=== PATIENT | male | born 1970 | race Caucasian/White ===

== ENCOUNTER → 2017-06-10 14:11 | Outpatient (CLI) | payer MEDICAID, SELFPAY ==
[2017-06-10 13:04] VITALS: BP 120/78; BMI 26.1
--- NOTE | 2017-06-10 14:35 | RAD_ITS ---
STUDY: X-RAY CHEST REASON FOR EXAM: Male, 47 years old. Chest pain. Shortness of breath. TECHNIQUE: PA and lateral views of the chest. COMPARISON: Comparison is made with prior study dated July 22, 2016. FINDINGS: The lungs are clear and expanded. There is no demonstrated pleural abnormality. Normal size heart. Normal mediastinum and sheyla. Normal visualized pulmonary arteries. Normal visualized aortic arch and descending thoracic aorta. Normal visualized thoracic spine. Normal visualized ribs, clavicles, and shoulders. There is no demonstrated abnormality of the visualized soft tissue structures of the upper abdomen. RAD/Chest PA and Lateral IMPRESSION: Normal x-ray examination of the chest. Electronically Signed: Rafita Mitchell MD at 15:41 EST Tel [phone], Service support ,
[2017-06-10 15:02] LABS: Absolute Lymphocyte Count 1.91 X10^3/ul (0.83-4.51); Absolute Neutrophil Count 5.1 X10^3/uL (2.0-7.7); Basophil# 0.05 X10^3/uL; Basophil% 0.7 % (0-1); Eosinophil# 0.11 X10^3/uL; Eosinophils% 1.4 % (0-5); Hematocrit 48.9 % (40-54); Hemoglobin 16.7 g/dl (13.0-16.5); Lymphocyte # 1.91 X10^3/ul (4.0); Lymphocyte % 24.9 % (19-41); Mean Corp Hgb Conc 34.2 g/gl (32-36); Mean Corpuscular Hgb 33.7 pg (27.0-32.0); Mean Corpuscular Volume 98.6 fL (80-94); Monocyte% 6.5 % (0-10); Neutrophil # 5.06 X10^3/uL (2.7-7.7); Platelet Count 254 K/mm3 (150-450); RBC Distribution Width CV 13.6 % (11.6-14.6); RBC Distribution Width SD 48.8 fl (35.1-43.9); Red Blood Count 4.96 M/mm3 (4.6-6.2); White Blood Count 7.7 K/mm3 (4.4-11.0)
[2017-06-10 15:04] LABS: POSITIVE COUNT NO; POSITIVE DIFFERENTIAL NO; POSITIVE MORPHOLOGY NO
[2017-06-10 15:07] LABS: International Normalized Ratio 1.1; Partial Thromboplast Time 30.8 Seconds (24.1-36.2); Prothrombin Time (Protime)PT. 13.9 SECONDS (11.7-14.9)
[2017-06-10 15:21] LABS: Anion Gap 6 (5-15); BUN 9 mg/dL (7-18); BUN/Creat Ratio 8.7 RATIO (10-20); Calcium,Total 9.5 mg/dL (8.5-10.1); Chloride 105 mmol/L (98-107); Creatinine, Serum 1.04 mg/dL (0.70-1.30); EST Glomerular Filtration Rate 81 mL/min (>60); Est Glom Filt Rate - Afr Amer 98 mL/min (>60); Glucose 94 mg/dL (70-110); Potassium 4.6 mmol/L (3.5-5.1); Sodium Level 139 mmol/L (136-145)
== END ==
PROVIDERS: Family Provider Family Medicine; PCP Family Medicine; Visit Provider Physician Assistant Medical
DX: R06.09 Other forms of dyspnea (principal); R07.9 Chest pain, unspecified
CPT/HCPCS: 36415; 71046; 80048; 85025; 85610; 85730

== ENCOUNTER 2017-06-29 09:52 | Day surgery (SDC) | payer MEDICAID, SELFPAY ==
[2017-06-28 11:55] VITALS: BMI 26.1
[2017-06-29 11:41] LABS: Blood Gas Specimen Type VEN; VBG BASE EXCESS -1 mmol/L (-1.0-3.5); VBG Bicarbonate 23 mmol/L (22-26); VBG Oxygen Content 24 mmol/L (23-33); VBG PO2 30 mmHg (25-40); VBG SO2 61 % (50-70); VBG pCO2 34.8 mmHg (41-51); VBG pH 7.43 (7.32-7.42)
[2017-06-29 11:41] LABS: Blood Gas Specimen Type VEN; VBG BASE EXCESS -1 mmol/L (-1.0-3.5); VBG Bicarbonate 24 mmol/L (22-26); VBG Oxygen Content 25 mmol/L (23-33); VBG PO2 28 mmHg (25-40); VBG SO2 53 % (50-70); VBG pCO2 38.8 mmHg (41-51)
[2017-06-29 11:41] LABS: Blood Gas Specimen Type VEN; VBG BASE EXCESS -2 mmol/L (-1.0-3.5); VBG Bicarbonate 22 mmol/L (22-26); VBG Oxygen Content 23 mmol/L (23-33); VBG PO2 37 mmHg (25-40); VBG SO2 73 % (50-70); VBG pCO2 34.9 mmHg (41-51); VBG pH 7.41 (7.32-7.42)
[2017-06-29 11:41] LABS: Base Excess -1 mmol/L (-2 to +2); Bicarbonate 22.6 mmol/L (22-26); Blood Gas Specimen Type ART; PO2 75 mmHG (75-100); SO2 96 % (95-99); Total Carbon Dioxide 24 mmol/L; pH 7.46 (7.35-7.45)
[2017-06-29 11:41] LABS: Blood Gas Specimen Type VEN; VBG BASE EXCESS 0 mmol/L (-1.0-3.5); VBG Bicarbonate 25 mmol/L (22-26); VBG Oxygen Content 26 mmol/L (23-33); VBG PO2 39 mmHg (25-40); VBG SO2 75 % (50-70); VBG pCO2 37.8 mmHg (41-51); VBG pH 7.42 (7.32-7.42)
[2017-06-29 11:41] LABS: Blood Gas Specimen Type VEN; VBG BASE EXCESS 0 mmol/L (-1.0-3.5); VBG Bicarbonate 24 mmol/L (22-26); VBG Oxygen Content 25 mmol/L (23-33); VBG PO2 30 mmHg (25-40); VBG SO2 60 % (50-70); VBG pCO2 35.7 mmHg (41-51); VBG pH 7.44 (7.32-7.42)
[2017-06-29 16:43] VITALS: PULSE 78
[2017-06-29 16:50] VITALS: BP 105/47; PULSE 79; RESP 16; TEMP 36.6; O2SAT 96
[2017-06-29] MEDS: 0.9% Normal Saline 1,000 ML 75 ML IV (16:53)
[2017-06-29 18:59] VITALS: PULSE 81
--- NOTE | 2017-06-29 20:45 | CL.D_ITS ---
Patient Name: ARTURO SUAREZ Study Date: 06/29/2017 Performing: Brenden Middleton MD Ht: 66.14 inches 168 cm : 1970 Wt: 160.94 lbs 73 kg Age: 47 Gender: male BSA: 1.83 PROCEDURE(S) PERFORMED EU87-SNP/LHC/COR/LV CLINICAL PROFILE AND INDICATIONS INDICATIONS: Shortness of Breath Stress/Imaging Stress/Image Study Performed: No Angina Classification Anginal Classification w/in 2 Weeks: No symptoms CAD Presentations: Other: Shortness of Breath CONCLUSIONS Elevated Left Ventricular End Diastolic Pressure (mild) Right heart pressures - Normal The patient has normal pulmonary hemodynamics. Intracardiac shunting: None (calculated QP/QS ratio of 1.1: considered nonhemodynamically significant ) Normal coronary arteries Normal Left Ventricular systolic function LVEF: by LV gram 65 % RECOMMENDATIONS Risk factor modification Medical therapy Follow up with primary care physician DESCRIPTION OF PROCEDURE The patient arrived to the procedure lab. The risks and benefits of the procedure as well as a full d escription of our services here and current unavailability of surgical backup were fully explained to the patient and/or their significant other prior to the catheterization. The Timeout was completed, verifying the correct patient and procedure. The patient's procedural site was prepped and draped in the usual fashion. Local anesthetic was given subcutaneously to right groin region with Lidocaine 2%. Using a modified Seldinger technique, arterial access was obtained via the right femoral artery, a 4 Fr sheath was inserted Venous access was obtained via the right femoral vein, a 7Fr sheath was insert ed. A 7Fr thermal dilution catheter was inserted and right heart pressures were recorded, it was then advanced to PA position for cardiac outputs. Left Ventriculography was performed in MC projection u sing a 4 Fr. Pigtail catheter. The Thermal dilution catheter was then removed. Left Coronary Artery s elective angiography was performed in multiple views using a 4 Fr. JL5 catheter. Right Coronary Arter y selective angiography was then performed in multiple views using a 4 Fr. 3DRC catheter.The arterial sheath was pulled and manual compression applied until hemostasis is achieved.. The venous sheath wa s then pulled and manual compression applied until hemostasis achieved CORONARY ANGIOGRAPHY DOMINANCE: Co- Dominant LEFT HEART ASSESSMENT Left Ventricular Ejection Fraction: by LV Gram 65 % Normal LV wall motion Elevated Left Ventricular End Diastolic Pressure LVEDP: 15 mmHg RIGHT HEART ASSESSMENT Thermal CO: 4.9 Thermal CI: 2.68 Colleen CO: 4.66 Colleen CI: 2.55 PW: 16/10 10 PA: 26/11 17 RV: 30/0 0 RA: 12/7 7 PVR: 114 Right Heart pressures - normal Intracardiac shunting: None (Calculated QP/QS ratio of 1.1: considered nonhemodynamically significant ) LEFT MAIN: Angiographically normal LEFT ANTERIOR DECENDING ARTERY: Angiographically normal CIRCUMFLEX ARTERY: Angiographically normal RIGHT CORONARY ARTERY: Angiographically normal VALVE FINDINGS: Normal Aortic Valve function Normal Mitral Valve function AORTIC ROOT: Angiographically normal COMPLICATIONS No Complications PROCEDURE MEDICATIONS Versed 1 mg IV Baby Aspirin (81mg) 1 Tabs PO @ 06/29/2017 11:01:57 SUMMARY OF HEMODYNAMIC DATA Time AIR REST ECG 10:32:37 RA 12/7 (7) SV 11:07:57 RA 11/4 (4) 11:11:27 RV 30/0, 0 11:12:43 PW 16/10 (10) PV 11:13:46 PA 26/11 (17) PA 11:14:03 LV 111/-12, 15 11:19:10 LV 110/-12, 15 11:19:28 PW 18/16 (13) 11:19:28 LV 109/4, 17 11:20:54 PW 19/17 (14) 11:20:54 LVp 110/2, 20 11:21:16 AOp 109/64 (85) 11:21:21 PA 29/11 (21) 11:21:50 RV 34/2, 11 11:24:31 RA 16/ (7) 11:24:57 Type SV CO (l/m) CI (l/m/ HR Time AIR REST Thermal 65.30 4.90 2.68 75 10:32:37 Colleen 62.10 4.66 2.55 75 10:32:37 Label % O2 Pres/Loc Time AIR REST AO 96 PV 11:34:52 IVC 73 SV 11:34:57 SVC 53 11:35:01 PA 60 PA 11:35:06 Signed By Brenden Middleton MD On 06/29/2017 20:50:36 Signed By Brenden Middleton MD On 06/29/2017 20:44:25 Brenden Middleton MD
[2017-06-29 22:50] VITALS: BP 127/61; PULSE 74; RESP 18; TEMP 36.5; O2SAT 96
[2017-06-29 23:05] VITALS: PULSE 78
[2017-06-30] MEDS: ALPRAZolam 0.5 MG Tablet 2 MG PO (01:19)
[2017-06-30 03:03] VITALS: PULSE 75
[2017-06-30 04:50] VITALS: BP 100/68; PULSE 82; RESP 16; TEMP 36.6; O2SAT 94
[2017-06-30] MEDS: 0.9% Normal Saline 1,000 ML 75 ML IV (04:57)
[2017-06-30 05:57] LABS: Hematocrit 45.1 % (40-54); Hemoglobin 14.9 g/dl (13.0-16.5); Mean Corpuscular Hgb 32.5 pg (27.0-32.0); Mean Corpuscular Volume 98.3 fL (80-94); Mean Platelet Vol. 9.3 fl (6.2-12.0); Platelet Count 230 K/mm3 (150-450); RBC Distribution Width CV 13.6 % (11.6-14.6); RBC Distribution Width SD 48.8 fl (35.1-43.9); Red Blood Count 4.59 M/mm3 (4.6-6.2); White Blood Count 5.8 K/mm3 (4.4-11.0)
[2017-06-30 06:09] LABS: Anion Gap 6 (5-15); BUN 8 mg/dL (7-18); BUN/Creat Ratio 9.5 RATIO (10-20); Calcium,Total 8.4 mg/dL (8.5-10.1); Chloride 107 mmol/L (98-107); Creatinine, Serum 0.84 mg/dL (0.70-1.30); EST Glomerular Filtration Rate 102 mL/min (>60); Est Glom Filt Rate - Afr Amer 124 mL/min (>60); Glucose 77 mg/dL (74-106); Potassium 4.2 mmol/L (3.5-5.1); Sodium Level 138 mmol/L (136-145)
[2017-06-30 06:23] LABS: Scan Indicated on CBC? Y/N NO
[2017-06-30 06:55] VITALS: PULSE 76
--- NOTE | 2017-06-30 13:07 | PCM.PN.CARD ---
Subjectve: The patient was evaluated earlier this day. He had no new complaints status post his cardiac catheterization yesterday, during the night, or this morning. Objective: Vital Signs Temp Pulse Resp BP Pulse Ox 97.9 F 76 16 100/68 94 06/30/17 04:50 06/30/17 06:55 06/30/17 04:50 06/30/17 04:50 06/30/17 04:50 Oxygen Delivery Method Room Air Weight: 162 lb Body Mass Index (BMI) 26.1 Intake and Output for Last 24 Hours 06/28/17 06/29/17 06/30/17 23:59 23:59 23:59 Intake Total 1721 172 Balance 1721 General: Awake, Alert, Oriented x 3, No Acute Distress Neck: No JVD Lungs: Clear to auscultation Cardiovascular: Regular Rhythm, Normal S1, Normal S2 Vascular: Normal Femoral Pulses Abdomen: Bowel Sounds Present, Soft, Non Tender Neurological: No Focal Motor or Sensory Deficit 06/30/17 05:10: WBC 5.8, RBC 4.59 L, Hgb 14.9, Hct 45.1, MCV 98.3 H, MCH 32.5 H, MCHC 33.0, RDW 13.6, RDW Differential 48.8 H, Plt Count 230, MPV 9.3 06/30/17 05:10: Sodium 138, Potassium 4.2, Chloride 107, Carbon Dioxide 25.0, Anion Gap 6, BUN 8, Creatinine 0.84, Est GFR (MDRD) Af Amer 124, Est GFR (MDRD) Non-Af 102, BUN/Creatinine Ratio 9.5 L, Glucose 77, Calcium 8.4 L Rhythm: Sinus rhythm Assessment/Plan 1. Chest pain/shortness of breath The patient underwent cardiovascular evaluation yesterday for his progressive chest discomfort and shortness of breath. This included a diagnostic right/left cardiac catheterization. The cardiac catheterization did not demonstrate any obvious elevated intrapulmonary/right heart pressures, obvious intracardiac shunting, or diminished LV systolic function. The coronary anatomy appeared to be angiographically normal. The patient was monitored overnight based upon his lack of family support capability to care for him if he had a post procedure adverse event at home. He had no new acute symptoms/adverse events status post his procedure. Thus, at the present time, the patient is to be released home. He will need to continue to follow with his primary care physician for further noncardiac evaluation of his chest discomfort and shortness of breath. This note was generated with [employer] dictation software. It may contain incorrect words, spelling, and punctuation that were not noted in checking the note before signing.
--- NOTE | 2017-06-30 13:12 | PN.CARD_ITS ---
Subjectve: The patient was evaluated earlier this day. He had no new complaints status post his cardiac catheterization yesterday, during the night, or this morning. Objective: Vital Signs Temp Pulse Resp BP Pulse Ox 97.9 F 76 16 100/68 94 06/30/17 04:50 06/30/17 06:55 06/30/17 04:50 06/30/17 04:50 06/30/17 04:50 Oxygen Delivery Method Room Air Weight: 162 lb Body Mass Index (BMI) 26.1 Intake and Output for Last 24 Hours 06/28/17 06/29/17 06/30/17 23:59 23:59 23:59 Intake Total 1721 172 Balance 1721 General: Awake, Alert, Oriented x 3, No Acute Distress Neck: No JVD Lungs: Clear to auscultation Cardiovascular: Regular Rhythm, Normal S1, Normal S2 Vascular: Normal Femoral Pulses Abdomen: Bowel Sounds Present, Soft, Non Tender Neurological: No Focal Motor or Sensory Deficit 06/30/17 05:10: WBC 5.8, RBC 4.59 L, Hgb 14.9, Hct 45.1, MCV 98.3 H, MCH 32.5 H , MCHC 33.0, RDW 13.6, RDW Differential 48.8 H, Plt Count 230, MPV 9.3 06/30/17 05:10: Sodium 138, Potassium 4.2, Chloride 107, Carbon Dioxide 25.0, Anion Gap 6, BUN 8, Creatinine 0.84, Est GFR (MDRD) Af Amer 124, Est GFR (MDRD) Non-Af 102, BUN/Creatinine Ratio 9.5 L, Glucose 77, Calcium 8.4 L Rhythm: Sinus rhythm Assessment/Plan 1. Chest pain/shortness of breath The patient underwent cardiovascular evaluation yesterday for his progressive chest discomfort and shortness of breath. This included a diagnostic right/ left cardiac catheterization. The cardiac catheterization did not demonstrate any obvious elevated intrapulmonary/right heart pressures, obvious intracardiac shunting, or diminished LV systolic function. The coronary anatomy appeared to be angiographically normal. The patient was monitored overnight based upon his lack of family support capability to care for him if he had a post procedure adverse event at home. He had no new acute symptoms/adverse events status post his procedure. Thus, at the present time, the patient is to be released home. He will need to continue to follow with his primary care physician for further noncardiac evaluation of his chest discomfort and shortness of breath. This note was generated with [employer] dictation software. It may contain incorrect words, spelling, and punctuation that were not noted in checking the note before signing.
== END 2017-06-30 09:29 | disposition home or self-care (01) ==
LOC: CLSP 09:53 → PCU 07-01 10:01
PROVIDERS: Family Provider Family Medicine; PCP Family Medicine; Visit Provider Internal Medicine Cardiovascular Disease
DX: R07.9 Chest pain, unspecified (principal); R06.09 Other forms of dyspnea; R55 Syncope and collapse; J45.909 Unspecified asthma, uncomplicated; F41.9 Anxiety disorder, unspecified; F32.9 Major depressive disorder, single episode, unspecified; F17.200 Nicotine dependence, unspecified, uncomplicated; Z79.899 Other long term (current) drug therapy
CPT/HCPCS: 36415; 80048; 82803; 85027; 93460; 99152; 99153; J7030; J7040; C1751; C1769; C1894; Q9967

== ENCOUNTER → 2017-07-01 10:36 | Outpatient (CLI) | payer MEDICAID, SELFPAY ==
--- NOTE | 2017-07-01 10:46 | RAD_ITS ---
STUDY: X-RAY CHEST REASON FOR EXAM: Male, 47 years old. Pain with respiration. TECHNIQUE: PA and lateral views of the chest. COMPARISON: Comparison is made with prior study dated June 10, 2017. FINDINGS: The lungs are clear and expanded. There is no demonstrated pleural abnormality. Normal size heart. Normal mediastinum and sheyla. Normal visualized pulmonary arteries. Normal visualized aortic arch and descending thoracic aorta. Normal visualized thoracic spine. Normal visualized ribs, clavicles, and shoulders. There is no demonstrated abnormality of the visualized soft tissue structures of the upper abdomen. RAD/Chest PA and Lateral IMPRESSION: Normal x-ray examination of the chest. Electronically Signed: Rafita Mitchell MD at 15:14 EST Tel [phone], Service support ,
== END ==
PROVIDERS: Family Provider Family Medicine; PCP Family Medicine; Visit Provider Physician Assistant Medical
DX: M89.8X1 Other specified disorders of bone, shoulder (principal); R07.1 Chest pain on breathing
CPT/HCPCS: 71046

== ENCOUNTER → 2018-08-04 12:35 | Outpatient (CLI) | payer MEDICAID, SELFPAY ==
[2018-04-26 08:33] VITALS: BMI 25.0
--- NOTE | 2018-08-07 09:49 | PFT ---
INTRODUCTION: The patient is a 48-year-old male that presents for pulmonary function testing secondary to a diagnosis of COPD. Respiratory therapy reports good patient effort. Bronchodilators were used during testing. INTERPRETATION: Forced expiration spirometry demonstrates the presence of a mild large airways obstructive ventilatory defect. There was no significant response to aerosolized bronchodilators. Spirograms are of good quality and do not plateau indicating slow emptying of the lungs. Body plethysmography was performed and reveals lung volumes to be within normal limits. Diffusing capacity by single breath CO is also within normal limits at 75% of predicted. There has been relative stability in the patient's pulmonary function studies since August 2016. IMPRESSION: Irreversible mild large airways obstructive ventilatory defect.
== END ==
PROVIDERS: Family Provider Family Medicine; PCP Family Medicine; Referring Provider Internal Medicine Critical Care Medicine; Visit Provider Internal Medicine Critical Care Medicine
DX: J45.909 Unspecified asthma, uncomplicated (principal); Z72.0 Tobacco use
CPT/HCPCS: 94060; 94726; 94729

== ENCOUNTER → 2018-11-03 | Outpatient (CLI) | payer MEDICAID, SELFPAY ==
[2018-10-26 11:23] VITALS: BMI 24.0
--- NOTE | 2018-11-03 08:37 | CDU_ITS ---
Reason For Study: Vertigo Rt. Velocities/BP Lt. Velocities/BP Prox CCA 119.1/33 cm/sec. Prox CCA 117/40.2 cm/sec. Mid CCA 93/27.8 cm/sec. Mid CCA 106/31.4 cm/sec. Dist CCA 96.9/31.7 cm/sec. Dist CCA 101/38.9 cm/sec. Prox ICA 77.2/22.3 cm/sec. Prox ICA 85.1/28.6 cm/sec. Mid ICA 75/28.9 cm/sec. Mid ICA 86.3/36 cm/sec. Dist ICA 90.5/42.1 cm/sec. Dist ICA 60.9/27.5 cm/sec. Rt. ICA/CCA = 0.9. Lt. ICA/CCA = 0.8. Prox ECA 71.7/16.8 cm/sec. Prox ECA 85.1/13.9 cm/sec. Rt. Vert. 52.6/18.6 cm/sec. Lt. Vert. 18.8 cm/sec. Right Extracranial There is intimal thickening but no significant atherosclerotic plaque noted in the right common carotid artery. There is intimal thickening but no significant atherosclerotic plaque noted in the right internal carotid artery. There is no significant atherosclerotic plaque noted in the right external carotid artery. Left Extracranial There is intimal thickening but no significant atherosclerotic plaque noted in the left common carotid artery. There is intimal thickening but no significant atherosclerotic plaque noted in the left internal carotid artery. There is intimal thickening but no significant atherosclerotic plaque noted in the left external carotid artery. Antegrade flow is noted in the left vertebral artery. Lt vertebral artery very limited flow noted. Procedure Carotid Duplex [id number]. Exam performed in department. Interpretation Summary Minimal intimal thickening bilateral carotids with <50% stenosis bilateral internal and external carotids <50% stenosis bilateral external carotids Patent and antegrade vertebrals bilaterally. Diminished flow noted within the left vertebral Ordering Physician: Yessica Menendez Referring Physician: Tremaine Child Performed By: Mayra Barahona RVT
--- NOTE | 2018-11-03 08:37 | VDLE_ITS ---
Reason For Study: Pain RIGHT LEFT GSV is normal. GSV is normal. CFV is compressible, spontaneous, phasic, CFV is compressible, spontaneous, phasic, competent and demonstrates normal competent, and demonstrates normal augmentation. augmentation. FV is compressible, spontaneous, phasic, FV is compressible, spontaneous, phasic, competent and demonstrates normal competent and demonstrates normal augmentation. augmentation. POP V is compressible, spontaneous, phasic, POP V is compressible, spontaneous, phasic, competent and demonstrates normal competent and demonstrates normal augmentation. augmentation. T/P Trunk is compressible. T/P Trunk is compressible. PTV is compressible. PTV is compressible. RT PerV is compressible. LT PerV is compressible. Procedure Exam performed in department. A preliminary report was called and/or faxed to [facility]. Interpretation Summary No evidence for acute deep venous thrombosis bilateral lower extremities with patent and compressible bilateral great saphenous veins. Ordering Physician: Yessica Menendez Referring Physician: Tremaine Child Performed By: Mayra Barahona RVT
== END | disposition home or self-care (01) ==
LOC: CVS 08:35
PROVIDERS: Family Provider Family Medicine; PCP Family Medicine; Referring Provider Physician Assistant Medical; Visit Provider Physician Assistant Medical
DX: R42 Dizziness and giddiness (principal); M79.606 Pain in leg, unspecified
CPT/HCPCS: 93880; 93970

== ENCOUNTER → 2020-01-16 10:27 | Outpatient (CLI) | payer MEDICAID, SELFPAY ==
[2020-01-10 11:05] VITALS: BMI 24.7
--- NOTE | 2020-01-16 10:28 | ECHOD_ITS ---
Reason For Study: PHTN Procedure This was a 2D Doppler, Color Flow transthoracic echocardiogram. The study was technically difficult. Exam performed in department. Left Ventricle Normal LV size. Left ventricular systolic function is normal. The estimated ejection fraction is 60 %. No evidence for diastolic dysfunction. No regional wall motion abnormalities noted. Right Ventricle Normal RV size. Normal systolic function. Atria Normal left atrium. Normal right atrium. No doppler evidence for ASD. Mitral Valve There is no mitral annular calcification. Normal mitral valve. Trivial mitral valve insufficiency. Tricuspid Valve Normal tricuspid valve. Trivial tricuspid valve insufficiency. Unable to estimate RV systolic pressure/pulmonary artery pressure due to technically difficult study. Aortic Valve Trisinus/trileaflet aortic valve. Mild diffuse aortic valve thickening. Pulmonic Valve The pulmonic valve is not well visualized. Great Vessels The aortic root is not well visualized. Pericardium/Pleural No pericardial effusion. MMode/2D Measurements & Calculations LVIDd: 4.1 cm IVSd: 1.1 cm LA dimension: 3.1 cm LVIDs: 2.8 cm LVPWd: 0.94 cm RVDd: 3.2 cm FS: 31.3 % LAV(MOD-bp): 30.4 ml LA A4 area: 13.0 cm2 RA A4 area: 10.9 cm2 LAV(MOD-bp) Indexed: 16.7 ml/m2 LAV(MOD-sp2): 29.7 ml LAV(MOD-sp4): 28.7 ml Time Measurements MV dec time: 0.17 sec Doppler Measurements & Calculations MV E max bib: 72.9 cm/sec Lat Peak E' Bib: 15.2 cm/sec Med Peak E' Bib: 14.3 cm/sec MV A max bib: 61.1 cm/sec E/E' lat: 4.8 E/E' med: 5.1 MV E/A: 1.2 MV V2 max: 74.2 cm/sec MV P1/2t max bib: 74.2 cm/sec Ao V2 max: 91.2 cm/sec MV max P.2 mmHg MV P1/2t: 69.3 msec Ao max P.3 mmHg MV V2 mean: 42.0 cm/sec MV dec slope: 313.4 cm/sec2 MV mean P.84 mmHg MVA(P1/2t): 3.2 cm2 MV V2 VTI: 18.1 cm LV V1 max: 81.2 cm/sec PA V2 max: 86.7 cm/sec LV V1 max P.6 mmHg Interpretation Summary The study was technically difficult. Left ventricular systolic function is normal. The estimated ejection fraction is 60 %. Trivial mitral valve insufficiency. Trivial tricuspid valve insufficiency. Mild diffuse aortic valve thickening. Unable to estimate RV systolic pressure/pulmonary artery pressure due to technically difficult study. No evidence for diastolic dysfunction. Ordering Physician: Shady Ha Referring Physician: TOMMIE JACINTO Performed By: Main [facility] RCS
--- NOTE | 2020-01-16 13:48 | PFT ---
INTRODUCTION: The patient is a 49-year-old male that presents for pulmonary function studies secondary to a diagnosis of COPD. Respiratory therapy reports good patient effort. Bronchodilators were used during testing. INTERPRETATION: Forced expiration spirometry demonstrates the presence of a mild large airways obstructive ventilatory defect. There was no significant response to aerosolized bronchodilators. Spirograms are of good quality and do not plateau indicating slow emptying of the lungs. Body plethysmography was performed and revealed an elevated TLC and RV, indicative of underlying hyperinflation and air trapping. Diffusing capacity by single breath CO is reduced at 71% of predicted. When compared to previous pulmonary function studies from July 2018, there has been a 10% reduction in FEV1. IMPRESSION: Irreversible mild large airways obstructive ventilatory defect with associated hyperinflation, air trapping and symmetric reduction in diffusing capacity. There have been changes in the patient's pulmonary function studies since 2018, as noted above.
== END ==
PROVIDERS: PCP Family Medicine; Referring Provider Internal Medicine Critical Care Medicine; Visit Provider Internal Medicine Critical Care Medicine
DX: J44.9 Chronic obstructive pulmonary disease, unspecified (principal); I27.20 Pulmonary hypertension, unspecified
CPT/HCPCS: 93306; 94060; 94726; 94729

== ENCOUNTER 2021-03-13 17:11 | Emergency (ER) | payer MEDICAID, SELFPAY ==
[2021-03-13 17:11] VITALS: BP 116/76; PULSE 88; RESP 16; TEMP 36.6; O2SAT 99; BMI 20.8
--- NOTE | 2021-03-13 17:27 | EKG12_ITS ---
Test Reason : SOB Blood Pressure : / mmHG Vent. Rate : 073 BPM Atrial Rate : 073 BPM P-R Int : 128 ms QRS Dur : 076 ms QT Int : 376 ms P-R-T Axes : 073 043 064 degrees QTc Int : 414 ms Normal sinus rhythm Normal ECG Confirmed by EDSON ROSENBERG, CALLY ([id number]), dictionary editor SAPPHIRE CAMEJO ([id number]) on 03/18/2021 8:26:30 AM Referred By: JJ Confirmed By:CALLY SANDHU MD
--- NOTE | 2021-03-13 17:31 | NURSING ---
NO OLD EKGS
[2021-03-13 18:18] LABS: Absolute Lymphocyte Count 1.67 X10^3/uL (0.83-4.51); Absolute Neutrophil Count 4.8 X10^3/uL (2.0-7.7); Basophil# 0.05 X10^3/uL; Basophil% 0.7 % (0-1); Eosinophils% 1.4 % (0-5); Hematocrit 38.3 % (40-54); Lymphocyte # 1.67 X10^3/ul (0.83-4.51); Lymphocyte % 23.5 % (19-41); Mean Corp Hgb Conc 33.9 g/dL (32-36); Mean Corpuscular Hgb 33.2 pg (27.0-32.0); Mean Platelet Vol. 10.4 fl (6.2-12.0); Monocyte# 0.45 X10^3/uL; Monocyte% 6.3 % (0-10); NRBC Flagged by Analyzer 0 % (0-5); Neutrophil % 67.7 % (47-70); Platelet Count 229 K/mm3 (150-450); RBC Distribution Width CV 12.2 % (11.6-14.6); RBC Distribution Width SD 43.9 fl (35.1-43.9); Red Blood Count 3.91 M/mm3 (4.6-6.2); White Blood Count 7.1 K/mm3 (4.4-11.0)
[2021-03-13 18:22] VITALS: O2SAT 99
--- NOTE | 2021-03-13 18:30 | RAD_ITS ---
EXAM: XR CHEST, 1 VIEW CLINICAL INDICATION: dyspnea TECHNIQUE: Frontal view of the chest. This report was created using [employer] report generation technology. COMPARISON: 07/01/2017 FINDINGS: LUNGS AND PLEURAL SPACES: Unremarkable. No consolidation or edema. No pneumothorax. No effusion. HEART: Unremarkable. Cardiac silhouette not enlarged. MEDIASTINUM: Central airways and mediastinal contour are unremarkable. BONES/JOINTS: Unremarkable. SOFT TISSUES: Unremarkable. RAD/Chest 1 View (Portable) IMPRESSION: No radiographic evidence of acute cardiopulmonary disease. Electronically Signed: Rahul Vergara MD at 18:43 EDT , Service support ,
--- NOTE | 2021-03-13 18:35 | EX.ED.DYSGE1 ---
HPI History of Present Illness Chief Complaint: Shortness of Breath Narrative Narrative: Patient is a 50-year-old male with past medical history of COPD as well as memory impairment. He states that he does not typically require supplemental oxygen. He states over the past 2 to 3 days he has noticed some increased shortness of breath with pain in his left upper back when he tries to take a breath. He denies any recent trauma. He denies any recent travel surgery or history of DVT/PE. He states he has had pneumonia in the past and this is somewhat similar to his presentation and is concerned for this and therefore comes in for evaluation [facility] Medical History Agoraphobia Anxiety Bipolar disorder Borderline schizophrenia Chronic anxiety Dyspnea on exertion IBS (irritable bowel syndrome) Intermittent explosive disorder Mild asthma Panic disorder Post traumatic stress disorder (PTSD) Syncope and collapse Tobacco abuse Home Medications alprazolam 2 mg tablet 2 mg PO TID-QID 30 Days #120 tab 06/10/17 [History Last Taken 06/29/17] carbamazepine 100 mg chewable tablet 100 mg PO TID 30 Days #15 06/10/17 [History Last Taken Unknown] topiramate 100 mg tablet 200 mg PO DAILY 30 Days #60 06/10/17 [History Last Taken Unknown] valacyclovir 500 mg tablet 500 mg PO DAILY 30 Days #30 06/10/17 [History Last Taken Unknown] olanzapine 15 mg tablet 20 mg PO DAILY 30 Days #39.9 tab 04/26/18 [History Last Taken Unknown] trazodone 100 mg tablet 200 mg PO DAILY tab 04/26/18 [History Last Taken Unknown] benzonatate 200 mg capsule 200 mg PO TID PRN #90 cap 08/19/18 [Rx Last Taken Unknown] spacer #1 ea 09/28/18 [Rx Last Taken Unknown] terazosin 2 mg capsule PO #30 cap 12/07/18 [History Last Taken Unknown] albuterol sulfate 90 mcg/actuation aerosol inhaler 2 puff INHALATION Q4H PRN #18 g 04/16/20 [Rx Last Taken Unknown] guaifenesin 200 mg/5 mL oral liquid 400 mg PO Q4H PRN #473 ml 04/16/20 [Rx Last Taken Unknown] montelukast 10 mg tablet 10 mg PO QPM #30 tab 04/16/20 [Rx Last Taken Unknown] hydroxyzine HCl 50 mg tablet 25 - 50 mg PO BID PRN 10/21/20 [History Last Taken Unknown] tiotropium bromide 2.5 mcg/actuation mist for inhalation 2 puff INHALATION QDAY #1 ea 11/28/20 [Rx Last Taken Unknown] budesonide-formoterol HFA 160 mcg-4.5 mcg/actuation aerosol inhaler 2 puff INHALATION BID #1 ea 12/26/20 [Rx Last Taken Unknown] ammonium lactate 1 applic TOPICAL DAILY PRN 03/13/21 [History Last Taken Unknown] dicyclomine 10 mg PO 4X/DAY 03/13/21 [History Last Taken Unknown] fluticasone propionate 50 mcg INTRANASAL DAILY 03/13/21 [History Last Taken Unknown] Allergy/AdvReac Type Severity Reaction Status Date / Time marijuana Allergy Other Verified 03/13/21 17:13 Family History Father Diabetes Sister CVA (cerebral vascular accident) Surgical History History of hydrocelectomy History of left heart catheterization (LHC) Social History Smoking Status: Former smoker Tobacco: How many years used: 44 second hand exposure: Yes alcohol intake: never substance use type: does not use caffeine: Yes Type: tea what type of physical activity do you participate in: none seatbelt use: never do you feel safe at home: Yes ROS ROS ED Constitutional Constitutional ED: Denies chills or fever(s) ENT ENT ED: Denies sore throat Cardiovascular Cardiovascular: Denies chest pain Respiratory/Chest Respiratory/Chest: Reports cough and dyspnea Gastrointestinal Gastrointestinal: Denies abdominal pain, diarrhea, nausea or vomiting Genitourinary Genitourinary ED: Denies dysuria Musculoskeletal Musculoskeletal: Reports back pain; Denies myalgias Integumentary Denies rash Neurologic Neurologic: Denies headache(s) Hematologic/Lymphatic Hematologic/Lymphatic: Denies easy bleeding or easy bruising EXAM Physical Exam Const Vital Signs: 03/13/21 17:11 03/13/21 18:22 Temperature 97.9 F Temperature Source Temporal Pulse Rate 88 Respiratory Rate 16 Respiratory Effort Normal Non-Labored Respiratory Depth Normal Respiratory Pattern Normal Blood Pressure 116/76 Blood Pressure Mean 89 Pulse Ox 99 Oxygen Delivery Method Room Air Room Air Positive well nourished and well developed General Appearance ED: well developed HEENT Reports moist mucous membranes HEENT Narrative: No tongue or lip swelling no oral lesions no airway edema or compromise Eyes PERRL and EOMs intact bilaterally Neck supple and no JVD Resp normal respiratory effort Resp Narrative: Breath sounds are diminished throughout with diffuse expiratory wheeze consistent with history of COPD but no signs of respiratory distress Cardio regular rate and regular rhythm Rate: other Other Details: Radial pulses are +2-4 bilaterally they are equal and symmetric GI normal to inspection, nondistended, normoactive bowel sounds, non-tender, non-distended and no masses GI Narrative: No voluntary guarding or rigidity no pulsatile mass Auscultation: normoactive bowel sounds Palpation: soft Back/Spine Back/Spine Narrative: Mild reproducible pain with palpation along the left scapular border Extremity normal to inspection Extremity Narrative: No asymmetric edema no pitting edema negative Homans' sign bilaterally Neuro oriented x3 and CN's II-XII intact bilaterally Sensorium / Orientation: alert Psych Psych Narrative: Patient has a flat/depressed affect Skin Skin Narrative: No overlying abrasions or ecchymosis noted MDM MDM MDM Narrative Medical decision making narrative: Patient presented to the ER in no acute respiratory distress with stable vitals. However as he reported sharp pain in his back that was worse with inspiration there is concern this could be due to lung pathology such as pneumonia pneumothorax or even a pulmonary embolus so basic work-up was obtained with D-dimer. Blood work revealed no clinically significant findings besides a elevated D-dimer so CTA was added. CTA revealed no pulmonary embolus pneumothorax pneumonia or arterial dissection. Therefore at this time I feel the patient's pain is musculoskeletal and as remainder of his work-up is negative he is safe for discharge. Lab Data Attestation: I reviewed the patient's lab results. Labs: Laboratory Results - last 24 hr 03/13/21 03/13/21 03/13/21 18:06 18:06 18:06 WBC 7.1 RBC 3.91 L Hgb 13.0 Hct 38.3 L MCV 98.0 H MCH 33.2 H MCHC 33.9 RDW Std Deviation 43.9 RDW Coeff of Flaco 12.2 Plt Count 229 MPV 10.4 Immature Gran % (Auto) 0.400 Neut % (Auto) 67.7 Lymph % (Auto) 23.5 [place] % (Auto) 6.3 Eos % (Auto) 1.4 Baso % (Auto) 0.7 Absolute Neuts (auto) 4.8 Absolute Lymphs (auto) 1.67 Nucleated RBC % 0 PT INR APTT D-Dimer Quant (PE/DVT) 0.74 H* Sodium 137 Potassium 3.8 Chloride 104 Carbon Dioxide 29.0 Anion Gap 4 L BUN 11 Creatinine 0.89 Estim Creat Clear Calc 80.35 Est GFR (MDRD) Af Amer 115 Est GFR (MDRD) Non-Af 95 BUN/Creatinine Ratio 12.3 Glucose 88 Calcium 9.1 Magnesium 2.2 Troponin I High Sens 6 03/13/21 18:06 WBC RBC Hgb Hct MCV MCH MCHC RDW Std Deviation RDW Coeff of Flaco Plt Count MPV Immature Gran % (Auto) Neut % (Auto) Lymph % (Auto) [place] % (Auto) Eos % (Auto) Baso % (Auto) Absolute Neuts (auto) Absolute Lymphs (auto) Nucleated RBC % PT 13.9 INR 1.1 APTT 31.5 D-Dimer Quant (PE/DVT) Sodium Potassium Chloride Carbon Dioxide Anion Gap BUN Creatinine Estim Creat Clear Calc Est GFR (MDRD) Af Amer Est GFR (MDRD) Non-Af BUN/Creatinine Ratio Glucose Calcium Magnesium Troponin I High Sens Radiography Diagnostic Testing: Clinical Impression(s) from Imaging Studies Chest X-Ray 03/13/21 18:30 IMPRESSION: No radiographic evidence of acute cardiopulmonary disease. Electronically Signed: Rahul Vergara MD at 18:43 EDT , Service support , Chest CTA 03/13/21 19:15 IMPRESSION: No demonstrated pulmonary embolism or arterial dissection. Electronically Signed: Rahul Vergara MD at 19:42 EDT , Service support , Discharge Plan Triage Chief Complaint: Shortness of Breath ED Provider: Hector Soto Dx/Rx/DC Orders Clinical Impression: Thoracic myofascial strain Instructions: ED COPD Flare, ED Thoracic Spine Strain Prescriptions: No Action valacyclovir 500 mg tablet 500 mg PO DAILY 30 Days Qty: 30 RF: 0 alprazolam 2 mg tablet 2 mg PO TID-QID 30 Days Qty: 120 RF: 0 topiramate 100 mg tablet 200 mg PO DAILY 30 Days Qty: 60 RF: 0 carbamazepine 100 mg tablet,chewable 100 mg PO TID 30 Days Qty: 15 RF: 0 olanzapine 15 mg tablet 20 mg PO DAILY 30 Days Qty: 39.9 RF: 0 trazodone 100 mg tablet 200 mg PO DAILY RF: 0 benzonatate 200 mg capsule 200 mg PO TID PRN (Reason: cough) Qty: 90 RF: 0 (DME) spacer See Rx Instructions .ROUTE .MEDSUPPLY Qty: 1 RF: 0 terazosin 2 mg capsule PO Qty: 30 RF: 0 Ventolin HFA 90 mcg/actuation HFA aerosol inhaler 2 puff INHALATION Q4H PRN (Reason: shortness of breath or wheezing) Qty: 18 RF: 6 guaifenesin 200 mg/5 mL liquid 400 mg PO Q4H PRN (Reason: cold symptoms) Qty: 473 RF: 6 montelukast 10 mg tablet 10 mg PO QPM Qty: 30 RF: 6 hydroxyzine HCl 50 mg tablet 25 - 50 mg PO BID PRN (Reason: Anxiety) RF: 0 ammonium lactate 12 % lotion 1 applic TOPICAL DAILY PRN (Reason: Dry Skin) RF: 0 fluticasone propionate 50 mcg/actuation spray,suspension 50 mcg INTRANASAL DAILY RF: 0 dicyclomine 10 mg Capsule 10 mg PO 4X/DAY RF: 0 Spiriva Respimat 2.5 mcg/actuation mist 2 puff INHALATION QDAY Qty: 1 RF: 6 Symbicort 160-4.5 mcg/actuation HFA aerosol inhaler 2 puff INHALATION BID Qty: 1 RF: 6 Primary Care Provider: Tremaine Child Referrals: Tremaine Child DO [Primary Care Provider] - Disposition Disposition: Home, Self Care
[2021-03-13 18:38] LABS: Anion Gap 4 (5-15); BUN 11 mg/dL (7-18); BUN/Creat Ratio 12.3 RATIO (10-20); Calcium,Total 9.1 mg/dL (8.5-10.1); Chloride 104 mmol/L (98-107); Creatinine, Serum 0.89 mg/dL (0.70-1.30); EST Glomerular Filtration Rate 95 mL/min (>60); Est Glom Filt Rate - Afr Amer 115 mL/min (>60); Estimated Creatinine Clearance 80.35 ml/min; Glucose 88 mg/dL (74-106); Magnesium 2.2 mg/dL (1.6-2.6); Potassium 3.8 mmol/L (3.5-5.1); Sodium Level 137 mmol/L (136-145); Troponin-I HS 6 pg/mL (3.0-78.0)
[2021-03-13 18:40] LABS: D-Dimer Quantitative (DVT/PE) 0.74 FEU/ug/m (0.27-0.49)
[2021-03-13 19:07] LABS: International Normalized Ratio 1.1; Prothrombin Time (Protime)PT. 13.9 SECONDS (11.7-14.9)
[2021-03-13 19:08] LABS: Partial Thromboplast Time 31.5 Seconds (24.1-36.2)
--- NOTE | 2021-03-13 19:15 | CT_ITS ---
EXAM: CT ANGIOGRAPHY CHEST WITHOUT AND WITH INTRAVENOUS CONTRAST CLINICAL INDICATION: elevated d-dimer TECHNIQUE: Helically acquired angiography images were obtained of the chest without and with intravenous contrast. This CT exam was performed using one or more of the following dose reduction techniques: automated exposure control, adjustment of the mA and/or kV according to patient size, and/or use of iterative reconstruction technique. This report was created using [employer] report generation technology. MIP reconstructed images were created and reviewed. CONTRAST: IV 75mL [id number] COMPARISON: None. FINDINGS: PULMONARY ARTERIES: No demonstrated pulmonary embolism or arterial dissection. AORTA: Unremarkable. Normal in caliber. No evidence of dissection. GREAT VESSELS OF AORTIC ARCH: Unremarkable. Normal in caliber. No evidence of dissection. LUNGS AND PLEURAL SPACES: There are scattered blebs and bullae. This can be seen in pulmonary emphysema. No mass. No pleural effusion or thickening. No pneumothorax. HEART: Unremarkable. Heart size is normal. No pericardial effusion. No signs of right heart strain, ratio of right ventricle to left ventricle measures less than 1. MEDIASTINUM: Unremarkable. No mediastinal or hilar adenopathy. Esophagus is unremarkable. No hiatal hernia. THYROID: Unremarkable. No thyroid lesions. BONES/JOINTS: There are degenerative findings of the thoracic spine. No suspicious lytic or blastic abnormality. CT/CTA Chest W/WO Contrast IMPRESSION: No demonstrated pulmonary embolism or arterial dissection. Electronically Signed: Rahul Vergara MD at 19:42 EDT , Service support ,
[2021-03-13] MEDS: 0.9% Normal Saline 1,000 ML 999 ML IV (19:21)
[2021-03-13 20:25] VITALS: RESP 18; O2SAT 98
== END 2021-03-13 20:38 | disposition home or self-care (01) ==
PROVIDERS: Emergency Provider Emergency Medicine; PCP Family Medicine
DX: S29.012A Strain of muscle and tendon of back wall of thorax, initial encounter (principal); X58.XXXA Exposure to other specified factors, initial encounter; Y93.9 Activity, unspecified; Y92.9 Unspecified place or not applicable; Y99.9 Unspecified external cause status; R79.89 Other specified abnormal findings of blood chemistry; J44.9 Chronic obstructive pulmonary disease, unspecified; Z20.822 Contact with and (suspected) exposure to COVID-19; K58.9 Irritable bowel syndrome, unspecified; F63.81 Intermittent explosive disorder; F40.01 Agoraphobia with panic disorder; F20.9 Schizophrenia, unspecified; F31.9 Bipolar disorder, unspecified; F43.10 Post-traumatic stress disorder, unspecified; Z79.899 Other long term (current) drug therapy; Z87.891 Personal history of nicotine dependence
CPT/HCPCS: 71045; 71275; 80048; 83735; 84484; 85025; 85379; 85610; 85730; 87426; 93005; 96360; 99283; J7030; Q9967; A4216

== ENCOUNTER → 2021-04-09 12:48 | Outpatient (CLI) | payer MEDICAID, SELFPAY ==
[2020-10-21 14:16] VITALS: BMI 22.8
--- NOTE | 2021-04-10 13:13 | PFT ---
INTRODUCTION: The patient is a 51-year-old male that presents for pulmonary function studies secondary to a diagnosis of COPD. Respiratory therapy reported good patient effort. Bronchodilators were used during testing. INTERPRETATION: Forced expiration spirometry demonstrates no evidence of a large airways obstructive ventilatory defect with a postbronchodilator FEV1 to FVC ratio of 71% of predicted. There was no significant response to aerosolized bronchodilators. Spirograms are of good quality but do not plateau indicating slow emptying of the lungs. Body plethysmography was performed and reveals lung volumes to be within normal limits. Diffusing capacity by single breath CO is also within normal limits. When compared to previous pulmonary function studies from January 2020 there has been significant improvement in the patient's FVC, FEV1 and DLCO. IMPRESSION: Grossly normal pulmonary function studies with significant improvement in FVC, FEV1 and DLCO since 2019, as noted above.
== END ==
PROVIDERS: PCP Family Medicine; Referring Provider Internal Medicine Critical Care Medicine; Visit Provider Internal Medicine Critical Care Medicine
DX: J45.40 Moderate persistent asthma, uncomplicated (principal); J44.9 Chronic obstructive pulmonary disease, unspecified
CPT/HCPCS: 94060; 94726; 94729

== ENCOUNTER 2021-08-19 18:46 | Emergency (ER) | payer MEDICAID, SELFPAY ==
[2021-08-19 18:47] VITALS: BP 103/78; PULSE 93; RESP 15; TEMP 38.3; O2SAT 100; BMI 20.9
--- NOTE | 2021-08-19 19:26 | EX.ED.DYSGE1 ---
HPI History of Present Illness Chief Complaint: Cellulitis Informant: patient Narrative Narrative: Patient comes in with left leg swelling and redness for about a month. He evidently had blood work done as an outpatient. They think this might be related to lupus which would be a new diagnosis. Patient states he has had slight fever today. But he has no cough nasal congestion myalgias or any other symptoms. The leg did not get worse today. He is not having chest pain. He has chronic dyspnea from COPD but is no different. He has no trauma to the leg. Nothing really makes it better or worse. He has noted that over time he has had more soreness up higher. He states it just started with a little swelling of his foot occasionally. But he now gets hardness in his left calf sometimes. Never had a DVT or PE. [facility] Medical History Agoraphobia Anxiety Bipolar disorder Borderline schizophrenia Chronic anxiety Dyspnea on exertion IBS (irritable bowel syndrome) Intermittent explosive disorder Mild asthma Panic disorder Post traumatic stress disorder (PTSD) Syncope and collapse Tobacco abuse Home Medications alprazolam 2 mg tablet 2 mg PO TID-QID 30 Days #120 tab 06/10/17 [History Last Taken 06/29/17] carbamazepine 100 mg chewable tablet 100 mg PO TID 30 Days #15 06/10/17 [History Last Taken Unknown] topiramate 100 mg tablet 200 mg PO DAILY 30 Days #60 06/10/17 [History Last Taken Unknown] valacyclovir 500 mg tablet 500 mg PO DAILY 30 Days #30 06/10/17 [History Last Taken Unknown] olanzapine 15 mg tablet 20 mg PO DAILY 30 Days #39.9 tab 04/26/18 [History Last Taken Unknown] trazodone 100 mg tablet 200 mg PO DAILY tab 04/26/18 [History Last Taken Unknown] benzonatate 200 mg capsule 200 mg PO TID PRN #90 cap 08/19/18 [Rx Last Taken Unknown] spacer #1 ea 09/28/18 [Rx Last Taken Unknown] terazosin 2 mg capsule PO #30 cap 12/07/18 [History Last Taken Unknown] albuterol sulfate 90 mcg/actuation aerosol inhaler 2 puff INHALATION Q4H PRN #18 g 04/16/20 [Rx Last Taken Unknown] guaifenesin 200 mg/5 mL oral liquid 400 mg PO Q4H PRN #473 ml 04/16/20 [Rx Last Taken Unknown] montelukast 10 mg tablet 10 mg PO QPM #30 tab 04/16/20 [Rx Last Taken Unknown] hydroxyzine HCl 50 mg tablet 25 - 50 mg PO BID PRN 10/21/20 [History Last Taken Unknown] ammonium lactate 1 applic TOPICAL DAILY PRN 03/13/21 [History Last Taken Unknown] dicyclomine 10 mg PO 4X/DAY 03/13/21 [History Last Taken Unknown] fluticasone propionate 50 mcg INTRANASAL DAILY 03/13/21 [History Last Taken Unknown] tiotropium bromide 2.5 mcg/actuation mist for inhalation 2 puff INHALATION QDAY #1 ea 06/26/21 [Rx Last Taken Unknown] budesonide-formoterol HFA 160 mcg-4.5 mcg/actuation aerosol inhaler 2 puff INHALATION BID #1 ea 07/30/21 [Rx Last Taken Unknown] Allergy/AdvReac Type Severity Reaction Status Date / Time marijuana Allergy Other Verified 08/19/21 18:49 Family History Father Diabetes Sister CVA (cerebral vascular accident) Surgical History History of hydrocelectomy History of left heart catheterization (LHC) Social History Smoking Status: Former smoker Tobacco: How many years used: 44 how long ago did patient quit smokin08/02/20 second hand exposure: Yes alcohol intake: never substance use type: does not use caffeine: Yes Type: tea what type of physical activity do you participate in: none seatbelt use: never do you feel safe at home: Yes ROS ROS ED Constitutional Constitutional ED: Denies chills or fever(s) ENT ENT ED: Denies rhinorrhea or sore throat Cardiovascular Cardiovascular: Denies chest pain or palpitations Respiratory/Chest Respiratory/Chest: Denies cough, dyspnea or sputum Gastrointestinal Gastrointestinal: Denies abdominal pain, nausea or vomiting Genitourinary Genitourinary ED: Denies dysuria Musculoskeletal Musculoskeletal: Reports other Details: See history of present illness. ; Denies back pain or neck pain Integumentary Denies abscess, Abrasions or rash Neurologic Neurologic: Denies paresthesias Endocrine Endocrinology: Denies polydipsia or polyuria Allergic/Immunologic Allergic/Immunologic ED: Denies urticaria EXAM Physical Exam Const Vital Signs: 08/19/21 18:47 08/19/21 20:48 Temperature 100.9 F H 98.4 F Temperature Source Temporal Oral Pulse Rate 93 Respiratory Rate 15 Blood Pressure 103/78 Blood Pressure Mean 86 Pulse Ox 100 Oxygen Delivery Method Room Air Positive well nourished and well developed General Appearance ED: well developed and NAD; Negative for cyanotic or diaphoretic HEENT Reports moist mucous membranes Eyes General Eye ED: Negative for pale conjunctiva or scleral icterus Neck no JVD Chest Wall inspection of chest normal Resp normal respiratory effort and clear to auscultation bilaterally Effort and Inspection: Negative for pain with movement Auscultation: Negative for rales, rhonchi or wheezes Cardio regular rate and regular rhythm GI normal to inspection, nondistended, normoactive bowel sounds and non-tender Palpation: soft Back/Spine no CVA tenderness Extremity Extremity Narrative: There is a little bit of redness to the left foot area. It improves a little bit when he lifts it up but does not go away. It is still redder than the right side. He also has slight amount of swelling of the foot. He has a little bit of firmness to the calf. No cord is felt. Neuro oriented x3 Sensorium / Orientation: alert Psych mental status grossly normal Skin Skin Narrative: See above. MDM MDM MDM Narrative Medical decision making narrative: Patient has normal CBC. Electrolytes are overall unremarkable. Ultrasound shows no sign of DVT. Patient has excellent by and triphasic pulses for both dorsalis pedis and posterior tibials. No sign of vascular insufficiency. Covid is also negative. I do not think this represents cellulitis. Is been going on for a month. It waxes and wanes. I have also talked with the patient. Over the last several months he has had new onset of psoriasis. He is developed some mild hyperthyroidism. My suspicion is that he likely has autoimmune process going. He is seeing his doctor for this. He has already been referred to rheumatology. I do not think we need any acute treatment now. Lab Data Attestation: I reviewed the patient's lab results. Labs: Laboratory Results - last 24 hr 08/19/21 08/19/21 19:35 19:35 WBC 5.8 RBC 3.91 L Hgb 13.1 Hct 37.4 L MCV 95.7 H MCH 33.5 H MCHC 35.0 RDW Std Deviation 41.6 RDW Coeff of Flaco 11.9 Plt Count 238 MPV 10.1 Immature Gran % (Auto) 0.300 Neut % (Auto) 62.3 Lymph % (Auto) 27.0 [place] % (Auto) 8.3 Eos % (Auto) 1.4 Baso % (Auto) 0.7 Absolute Neuts (auto) 3.6 Absolute Lymphs (auto) 1.57 Nucleated RBC % 0 Sodium 140 Potassium 4.4 Chloride 106 Carbon Dioxide 30.0 Anion Gap 4 L BUN 11 Creatinine 1.30 Estim Creat Clear Calc 54.81 Est GFR (MDRD) Af Amer 74 Est GFR (MDRD) Non-Af 61 BUN/Creatinine Ratio 8.5 L Glucose 85 Calcium 9.4 Radiography Diagnostic Testing: Clinical Impression(s) from Imaging Studies Venous Duplex 08/19/21 19:41 IMPRESSION: There is no demonstrated deep venous thrombosis. Electronically Signed: Rahul Vergara MD at 20:16 EDT Reading Location ID and State: [facility] / [place] , Service support , Discharge Plan Triage Chief Complaint: Cellulitis ED Provider: Husam Falcon Dx/Rx/DC Orders Clinical Impression: Foot swelling Instructions: ED Peripheral Edema, Bilateral Prescriptions: No Action valacyclovir 500 mg tablet 500 mg PO DAILY 30 Days Qty: 30 RF: 0 alprazolam 2 mg tablet 2 mg PO TID-QID 30 Days Qty: 120 RF: 0 topiramate 100 mg tablet 200 mg PO DAILY 30 Days Qty: 60 RF: 0 carbamazepine 100 mg tablet,chewable 100 mg PO TID 30 Days Qty: 15 RF: 0 olanzapine 15 mg tablet 20 mg PO DAILY 30 Days Qty: 39.9 RF: 0 trazodone 100 mg tablet 200 mg PO DAILY RF: 0 benzonatate 200 mg capsule 200 mg PO TID PRN (Reason: cough) Qty: 90 RF: 0 (DME) spacer See Rx Instructions .ROUTE .MEDSUPPLY Qty: 1 RF: 0 terazosin 2 mg capsule PO Qty: 30 RF: 0 Ventolin HFA 90 mcg/actuation HFA aerosol inhaler 2 puff INHALATION Q4H PRN (Reason: shortness of breath or wheezing) Qty: 18 RF: 6 guaifenesin 200 mg/5 mL liquid 400 mg PO Q4H PRN (Reason: cold symptoms) Qty: 473 RF: 6 montelukast 10 mg tablet 10 mg PO QPM Qty: 30 RF: 6 hydroxyzine HCl 50 mg tablet 25 - 50 mg PO BID PRN (Reason: Anxiety) RF: 0 ammonium lactate 12 % lotion 1 applic TOPICAL DAILY PRN (Reason: Dry Skin) RF: 0 fluticasone propionate 50 mcg/actuation spray,suspension 50 mcg INTRANASAL DAILY RF: 0 dicyclomine 10 mg Capsule 10 mg PO 4X/DAY RF: 0 Spiriva Respimat 2.5 mcg/actuation mist 2 puff INHALATION QDAY Qty: 1 RF: 6 Symbicort 160-4.5 mcg/actuation HFA aerosol inhaler 2 puff INHALATION BID Qty: 1 RF: 6 Primary Care Provider: Tremaine Child Referrals: Tremaine Child DO [Primary Care Provider] - As soon as possible Activity Restrictions/Additional Instructions: Follow-up with rheumatology as soon as possible. Disposition Disposition: Home, Self Care
--- NOTE | 2021-08-19 19:41 | US_ITS ---
STUDY: VENOUS DOPPLER ULTRASOUND - LEFT LOWER EXTREMITY REASON FOR EXAM: Male, 51 years old. LEG PAIN AND SWELLING LT LEG SWELLING TECHNIQUE: Ultrasound evaluation of the deep vein system to include ochoa-scale imaging and compression was performed. Ochoa-scale imaging and Doppler sonographic evaluation, including duplex spectral analysis and qualitative color flow sonography, was performed. COMPARISON: None. FINDINGS: Common Femoral Vein: Normal compression, spontaneity and augmentation. Normal color Doppler. Common Femoral Vein/Greater Saphenous Junction: Normal compression, spontaneity and augmentation. Normal color Doppler. Superficial Femoral Proximal: Normal compression, spontaneity and augmentation. Normal color Doppler. Superficial Femoral Middle: Normal compression, spontaneity and augmentation. Normal color Doppler. Superficial Femoral Distal: Normal compression, spontaneity and augmentation. Normal color Doppler. Popliteal Vein: Normal compression, spontaneity and augmentation. Normal color Doppler. Posterior Tibial Vein: Normal compression, spontaneity and augmentation. Normal color Doppler. Peroneal Vein: Normal compression, spontaneity and augmentation. Normal color Doppler. There is no demonstrated deep venous thrombosis. US/Venous Duplex Imag/Limited/Uni IMPRESSION: There is no demonstrated deep venous thrombosis. Electronically Signed: Rahul Vergara MD at 20:16 EDT ,
[2021-08-19 19:43] LABS: Absolute Lymphocyte Count 1.57 X10^3/uL (0.83-4.51); Absolute Neutrophil Count 3.6 X10^3/uL (2.0-7.7); Basophil# 0.04 X10^3/uL; Basophil% 0.7 % (0-1); Eosinophil# 0.08 X10^3/uL; Eosinophils% 1.4 % (0-5); Hematocrit 37.4 % (40-54); Hemoglobin 13.1 g/dL (13.0-16.5); Lymphocyte # 1.57 X10^3/ul (0.83-4.51); Mean Corpuscular Hgb 33.5 pg (27.0-32.0); Mean Corpuscular Volume 95.7 fL (80-94); Mean Platelet Vol. 10.1 fl (6.2-12.0); Monocyte# 0.48 X10^3/uL; Monocyte% 8.3 % (0-10); NRBC Flagged by Analyzer 0 % (0-5); Neutrophil # 3.62 X10^3/uL (2.7-7.7); Neutrophil % 62.3 % (47-70); Platelet Count 238 K/mm3 (150-450); RBC Distribution Width CV 11.9 % (11.6-14.6); RBC Distribution Width SD 41.6 fl (35.1-43.9); Red Blood Count 3.91 M/mm3 (4.6-6.2); White Blood Count 5.8 K/mm3 (4.4-11.0)
[2021-08-19 20:01] LABS: Anion Gap 4 (5-15); BUN 11 mg/dL (7-18); BUN/Creat Ratio 8.5 RATIO (10-20); Calcium,Total 9.4 mg/dL (8.5-10.1); Chloride 106 mmol/L (98-107); EST Glomerular Filtration Rate 61 mL/min (>60); Est Glom Filt Rate - Afr Amer 74 mL/min (>60); Estimated Creatinine Clearance 54.81 ml/min; Glucose 85 mg/dL (74-106); Potassium 4.4 mmol/L (3.5-5.1); Sodium Level 140 mmol/L (136-145)
[2021-08-19 20:48] VITALS: TEMP 36.9
== END 2021-08-19 23:13 | disposition home or self-care (01) ==
PROVIDERS: Emergency Provider Emergency Medicine; PCP Family Medicine; Visit Provider Emergency Medicine
DX: M79.89 Other specified soft tissue disorders (principal); J44.9 Chronic obstructive pulmonary disease, unspecified; F21 Schizotypal disorder; F31.9 Bipolar disorder, unspecified; F40.01 Agoraphobia with panic disorder; E05.90 Thyrotoxicosis, unspecified without thyrotoxic crisis or storm; L40.9 Psoriasis, unspecified; F41.9 Anxiety disorder, unspecified; Z20.822 Contact with and (suspected) exposure to COVID-19; Z79.899 Other long term (current) drug therapy; Z87.891 Personal history of nicotine dependence
CPT/HCPCS: 80048; 85025; 87811; 93971; 99283; A4216

== ENCOUNTER → 2022-02-06 | Outpatient (CLI) | payer MEDICAID, SELFPAY ==
--- NOTE | 2022-02-10 08:45 | PFT ---
INTRODUCTION: The patient is a 51-year-old male that presents for pulmonary function studies secondary to a diagnosis of COPD. Respiratory therapy reported good patient effort. Bronchodilators were used during testing. INTERPRETATION: Forced expiration spirometry demonstrates the presence of a mild large airways obstructive ventilatory defect. There was no significant response to aerosolized bronchodilators. Spirograms are of good quality and plateau gradually indicating slow emptying of the lungs. Body plus tomography was performed and reveals lung volumes to be within normal limits. Diffusing capacity by single breath CO is also within normal limits. IMPRESSION: Irreversible mild obstructive ventilatory impairment with preserved lung volumes and diffusing capacity.
== END | disposition home or self-care (01) ==
LOC: PSN 12:40
PROVIDERS: PCP Family Medicine; Referring Provider Nurse Practitioner Acute Care; Visit Provider Nurse Practitioner Acute Care
DX: J44.9 Chronic obstructive pulmonary disease, unspecified (principal)
CPT/HCPCS: 94060; 94726; 94729

== ENCOUNTER → 2022-03-10 | Outpatient (CLI) | payer MEDICAID, SELFPAY ==
--- NOTE | 2022-03-10 17:46 | CT_ITS ---
STUDY: LOW DOSE CT LUNG CANCER SCREENING REASON FOR EXAM: Male, 51 years old. 45 pack-year history quit July 2020. RADIATION DOSAGE (If Supplied By Facility): CTDIvol = ( 2.01 ) mGy, DLP = ( 81.28 ) mGycm TECHNIQUE: No contrast was administered. Low dose technique was utilized (average mAS-38 and kVp 120). 1.25 mm axial source images with a slice interval of 1.25-mm were reconstructed in lung windows. 2.5 mm axial source images with a slice interval of 2.5-mm were reconstructed in lung windows. 5.0 mm axial source images with a slice interval of 5.0-mm were reconstructed in soft tissue windows. COMPARISON: CTA of the chest, March 13, 2021. NODULES: Total lung nodules (excluding granulomas): 0 Emphysema: Diffuse emphysematous changes. There is mild scarring in the right lung apex. Stable pulmonary emboli. Endobronchial lesion: None Aorta: Normal CORONARY ARTERIES: Minimal coronary artery calcification. Heart: Normal Pulmonary artery: Normal Mediastinal nodes: None Other chest and abdominal findings: CT/Low Dose CT Lung Screening IMPRESSION: Lung-RADS category 1 - Continue annual screening with LDCT in 12 months. IMPORTANT NOTES FOR USE: ACR Lung-RADS Version 1.1 Assessment Categories Release Date: 2018 Category: Coded 0-4 bases on nodule(s) with highest degree of suspicion. Negative screen is defined as categories 1 and 2; a positive screen is defined as categories 3 and 4. Category 3 and 4A nodules that are unchanged on interval CT should be coded as category 2, and individuals returned to screening in 12 months. Category 4X: Category 3 or 4 nodules with additional imaging findings that increase the suspicion of lung cancer, such as spiculation, GGN that doubles in size in 1 year, enlarged lymph notes, etc. Category Modifiers: S (significant finding unrelated to lung cancer) Electronically Signed: Hammad Franz DO at 23:03 EDT Reading Location ID and State: [address] [place] [address] Tel [phone], Service support ,
== END | disposition home or self-care (01) ==
LOC: CT 17:44
PROVIDERS: PCP Family Medicine; Visit Provider Nurse Practitioner Acute Care
DX: F17.210 Nicotine dependence, cigarettes, uncomplicated (principal)
CPT/HCPCS: 71271

== ENCOUNTER → 2023-03-17 | Outpatient (CLI) | payer MEDICAID, SELFPAY ==
--- NOTE | 2023-03-17 16:37 | CT_ITS ---
EXAM: CT CHEST, LUNG CANCER SCREENING WITHOUT INTRAVENOUS CONTRAST CLINICAL INDICATION: smoking SMOKER X 40+YRS, 2PPD X 40+ YRS, HEART CATH X 2 TECHNIQUE: Helically acquired images were obtained of the chest without intravenous contrast using low dose (LDCT) lung cancer screening protocol. This CT exam was performed using one or more of the following dose reduction techniques: automated exposure control, adjustment of the mA and/or kV according to patient size, and/or use of iterative reconstruction technique. COMPARISON: 03/10/2022 and CTA chest, 03/13/2021. FINDINGS: LUNGS AND PLEURAL SPACES: Diffuse centrilobular emphysema is again identified. Mild unchanged right apical scarring is identified. There is new nodular apical disease on the left with a mean diameter of approximately 6 mm extending to the pleura. No additional discrete nodules are identified in either lung. No pulmonary mass. No pneumothorax. HEART: No significant abnormality. Heart size is normal. No pericardial effusion. No significant coronary artery calcifications. MEDIASTINUM: No significant abnormality. No mediastinal or hilar adenopathy. Esophagus is unremarkable. No hiatal hernia. THYROID: No significant abnormality. No thyroid lesions. BONES/JOINTS: Degenerative changes in the spine. No suspicious lytic or blastic abnormality. VASCULATURE: No significant abnormality. Thoracic aorta is non-dilated. LYMPH NODES: No significant abnormality. No enlarged lymph nodes. CT/Low Dose CT Lung Screening IMPRESSION: 1. ACR Lung CT Screening Reporting And Data System (Lung-RADS) score: 4XS - Very Suspicious. There are features or imaging findings that increase the suspicion of malignancy and additional clinically significant or potentially clinically significant findings described in this report. Recommend chest CT with or without contrast, PET/CT and/or tissue sampling depending on the probability of malignancy and comorbidities. PET/CT may be used when there is a >=8 mm solid component. FOR NEW LARGE NODULES THAT DEVELOP ON AN ANNUAL REPEAT SCREENING CT, A 1 MONTH LDCT MAY BE RECOMMENDED TO ADDRESS POTENTIALLY INFECTIOUS OR INFLAMMATORY CONDITIONS. 2. Diffuse centrilobular emphysema is again identified. Electronically Signed: Rob Harding DO at 21:24 EST ,
== END | disposition home or self-care (01) ==
LOC: CT 16:35
PROVIDERS: PCP Family Medicine; Visit Provider Nurse Practitioner Acute Care
DX: F17.210 Nicotine dependence, cigarettes, uncomplicated (principal)
CPT/HCPCS: 71271

== ENCOUNTER → 2023-06-17 | Outpatient (CLI) | payer MEDICAID, SELFPAY ==
--- NOTE | 2023-06-17 16:55 | CT_ITS ---
STUDY: CT CHEST WITHOUT CONTRAST REASON FOR EXAM: Male, 53 years old. Follow-up left upper lobe nodule RADIATION DOSAGE (If Supplied By Facility): CTDIvol = ( 6.23 ) mGy, DLP = ( 242.86 ) mGycm TECHNIQUE: Transaxial imaging was performed without the administration of intravenous contrast material. Multiplanar coronal and sagittal images were reformatted. Individualized dose optimization techniques were used for this CT. COMPARISON: Comparison is made with prior study dated March 17, 2023. FINDINGS: CHEST Hyperinflation. Emphysematous changes more prominent in the upper lobes. The previously seen irregular nodular density in the medial left lung apex has decreased in size. Minimal residual changes persist most likely representing scarring. There is no demonstrated pleural abnormality. Mild degree of coronary artery calcification. There are small lymph nodes within the mediastinum, which are normal in size and morphology most compatible with reactive lymph hyperplasia. Normal hilar regions. Normal unenhanced pulmonary arteries. There is atherosclerotic calcification of the aortic arch. There are degenerative changes of the thoracic spine. There is no demonstrated abnormality of the visualized upper abdomen. CT/Chest without Contrast IMPRESSION: Hyperinflation and emphysematous changes. Interval decrease in size of the previously seen nodular density in the medial left apex with findings suggestive of scarring. Electronically Signed: Rafita Mitchell MD at 10:29 EST ,
== END | disposition home or self-care (01) ==
LOC: CT 16:51
PROVIDERS: PCP Family Medicine; Referring Provider Internal Medicine Critical Care Medicine; Visit Provider Internal Medicine Critical Care Medicine
DX: R91.1 Solitary pulmonary nodule (principal)
CPT/HCPCS: 71250

== ENCOUNTER → 2023-09-10 | Outpatient (CLI) | payer MEDICAID, SELFPAY ==
--- NOTE | 2023-09-10 16:34 | CT_ITS ---
HISTORY: RANDI nodule. TECHNIQUE: Helically acquired images were obtained of the chest without contrast. A radiation dose optimization technique was used for this scan. 838 images. COMPARISON: 06/17/2023, 03/17/2023, 03/10/2022. FINDINGS: LARGE AIRWAYS: Patent. LUNGS: Advanced emphysema. Stable spiculated left upper lobe nodule with a 6 mm nodular component and spiculations contacting the pleural surface. Chronic mild biapical scarring. No new suspicious nodule or acute alveolar consolidation. PLEURA: No pneumothorax or significant pleural effusion. HEART/PERICARDIUM: Heart within normal limits in size with coronary artery calcification. No pericardial effusion. VESSELS: Thoracic aorta nondilated. Mild atherosclerosis. MEDIASTINUM/EFREN: No pathologically enlarged adenopathy. UPPER ABDOMEN: Unremarkable. BONES: Mild degenerative change. CT/Chest without Contrast IMPRESSION: Advanced pulmonary emphysema with a stable left upper lobe spiculated nodule. Lung-RADS category 3: Recommend [address] follow-up. Electronically Signed: Mary Casiano MD at 16:01 EDT ,
== END | disposition home or self-care (01) ==
LOC: CT 16:33
PROVIDERS: PCP Family Medicine; Referring Provider Internal Medicine Critical Care Medicine; Visit Provider Internal Medicine Critical Care Medicine
DX: R91.1 Solitary pulmonary nodule (principal)
CPT/HCPCS: 71250

== ENCOUNTER → 2023-12-02 | Outpatient (CLI) | payer MEDICAID, SELFPAY | END | disposition home or self-care (01) | PROVIDERS: PCP Family Medicine; Referring Provider Nurse Practitioner Acute Care; Visit Provider Nurse Practitioner Acute Care | DX: J44.9 Chronic obstructive pulmonary disease, unspecified (principal) | CPT/HCPCS: 94060; 94726; 94729 ==

== ENCOUNTER → 2023-12-27 | Outpatient (CLI) | payer MEDICAID, SELFPAY ==
--- NOTE | 2023-12-27 13:43 | CT_ITS ---
STUDY: CT CHEST WITHOUT CONTRAST REASON FOR EXAM: Male, 53 years old. Follow lung nodule RADIATION DOSAGE (If Supplied By Facility): CTDIvol = ( 7.6 ) mGy, DLP = ( 294.37 ) mGycm TECHNIQUE: Transaxial imaging was performed without the administration of intravenous contrast material. Multiplanar coronal and sagittal images were reformatted. Individualized dose optimization techniques were used for this CT. COMPARISON: Comparison is made with prior examination dated September 10, 2023. FINDINGS: CHEST Stable small benign-appearing bilateral axillary lymph nodes. There is a 4.5 mm thick nodule in the medial aspect of the left lung apex. This appears to have decreased minimally in size as compared to prior study. Stable scarring at the lung apices with emphysematous changes more prominent in the upper lobes. There is no demonstrated pleural abnormality. There are calcifications of the coronary arteries. Small mediastinal lymph nodes. Normal hilar regions. Normal unenhanced pulmonary arteries. Mild degree of atherosclerotic plaque formation of the aortic arch. There are mild degenerative changes of the thoracic spine. There is no demonstrated abnormality of the visualized upper abdomen. CT/Chest without Contrast IMPRESSION: Slight decrease size of the pulmonary nodule in the left lung apex on superimpose mild scarring as well as emphysematous changes. Electronically Signed: Rafita Mitchell MD at 14:26 EDT ,
== END | disposition home or self-care (01) ==
LOC: CT 13:42
PROVIDERS: PCP Family Medicine; Referring Provider Nurse Practitioner Acute Care; Visit Provider Nurse Practitioner Acute Care
DX: R91.1 Solitary pulmonary nodule (principal)
CPT/HCPCS: 71250

== ENCOUNTER → 2024-06-20 | Outpatient (CLI) | payer MEDICAID, SELFPAY ==
--- NOTE | 2024-06-20 18:54 | CT_ITS ---
PROCEDURE: CT CHEST WITHOUT CONTRAST REASON FOR EXAM: Lung nodule. TECHNIQUE: Chest CT without contrast. Coronal and sagittal 2D reformatted images were provided. COMPARISON: CT chest from 12/27/2023, 09/10/2023. FINDINGS: Cardiac size is within normal limits. Thoracic aorta demonstrates a normal caliber. There are small mediastinal lymph nodes. No lymphadenopathy is present. No significant coronary artery calcifications are present. No pericardial or pleural effusion is present. Mild bilateral retroareolar soft tissue attenuation likely relates to gynecomastia. Evaluation of the lung parenchyma demonstrates emphysematous changes. There is interval development of a spiculated opacity in the right lung apex with calcifications measuring approximately 16 x 20 mm in the CC and transverse dimensions respectively which extends to the posterolateral pleural surface (image 17 of 135). There is redemonstration of a 5 mm nodule in the medial aspect of the left lung apex which is unchanged (image 19 of 135). Central airway is patent. No pneumothorax is present. Upper abdomen demonstrates no acute findings. Degenerative changes are present. CT/Chest without Contrast IMPRESSION: 1. Interval development of a spiculated opacity in the right lung apex with yolanda cifications measuring approximately 16 x 20 mm which extends to the pleural surface. Findings are concerning for malignancy. Recommend PET-CT and/or tissue sampling. 2. Unchanged 5 mm nodule in the medial aspect of the left lung apex. 3. Emphysema. One or more dose reduction techniques were used (e.g., Automated exposure contr ol, adjustment of the mA and/or kV according to patient size, use of iterative reconstruction technique). Reading Location: [facility]
== END | disposition home or self-care (01) ==
LOC: CT 18:52
PROVIDERS: PCP Family Medicine; Referring Provider Nurse Practitioner Acute Care; Visit Provider Nurse Practitioner Acute Care
DX: R91.1 Solitary pulmonary nodule (principal)
CPT/HCPCS: 71250

== ENCOUNTER → 2024-10-03 | Outpatient (CLI) | payer MEDICAID, SELFPAY ==
--- NOTE | 2024-10-03 16:45 | CT_ITS ---
PROCEDURE: CHEST WITHOUT CONTRAST 10/03/2024 REASON FOR EXAM: ABNORMAL CHEST CT Follow-up of lung nodules. TECHNIQUE: Chest CT without contrast. Coronal and Sagittal reconstruction series were provided. One or more dose reduction techniques were used (e.g., Automated exposure control, adjustment of the mA and/or kV according to patient size, use of iterative reconstruction technique RADIATION DOSE SUMMARY: CTDlvol: 7.29 mGy DLP: 293.29 mGycm COMPARISON: Prior study dated June 20, 2024. FINDINGS: Hardware: None Lymph nodes: Medially on the lymph nodes. Heart and Vasculature: The heart is nonenlarged. Coronary Artery Calcifications: Minimal coronary artery calcifications are seen. Mild atherosclerotic calcification of the aortic arch. Lungs and Airways: Stable emphysematous changes worse in the upper lobes and more pronounced in the right apex. Stable heterogeneous nodular linear density in the posterior aspect of the right lung apex. This most likely represents a focal area of scarring. Stable linear scarring in the medial left lung apex. Stable 5 mm nodule in the center of the scar in the left upper lobe. No new nodule is seen. Pleura: Unremarkable Upper Abdomen: Multiple gallstones. Bones: Unremarkable. CT/Chest without Contrast IMPRESSION: Coronary artery calcification (CAC) is is present Stable scarring at the lung apices more pronounced in the right lung apex with evidence of emphysematous changes. No new abnormality is seen. Reading Location: [id number]
== END | disposition home or self-care (01) ==
LOC: CT 16:35
PROVIDERS: PCP Family Medicine; Referring Provider Internal Medicine Critical Care Medicine; Visit Provider Internal Medicine Critical Care Medicine
DX: R93.89 Abnormal findings on diagnostic imaging of other specified body structures (principal)
CPT/HCPCS: 71250

== ENCOUNTER → 2024-12-22 | Outpatient (CLI) | payer MEDICAID, SELFPAY ==
--- NOTE | 2024-12-22 12:41 | CT_ITS ---
PROCEDURE: CHEST WITHOUT CONTRAST 12/22/2024 REASON FOR EXAM: NODULE IN SMOKER Follow-up examination. COPD. TECHNIQUE: Chest CT without contrast. Coronal and Sagittal reconstruction series were provided. One or more dose reduction techniques were used (e.g., Automated exposure control, adjustment of the mA and/or kV according to patient size, use of iterative reconstruction technique RADIATION DOSE SUMMARY: CTDlvol: 7.01 mGy DLP: 289.11 mGycm COMPARISON: Prior study dated October 03, 2024. FINDINGS: Hardware: None Lymph nodes: Stable small benign-appearing mediastinal and axillary lymph nodes. Heart and Vasculature: The heart is not enlarged. Atherosclerotic calcification of the aortic arch. Coronary Artery Calcifications: Present Lungs and Airways: Hyperinflation. Stable scarring in the lung apices more pronounced on the right side with focal area of cystic/solid linear density suggestive of pulmonary scarring. This is on changed. Underlying emphysematous changes. Pleura: No pleural effusion. Upper Abdomen: Multiple small gallstones. Bones: Unremarkable. CT/Chest without Contrast IMPRESSION: Coronary artery calcification (CAC) is is present Stable examination. Reading Location: [id number]
== END | disposition home or self-care (01) ==
LOC: CT 12:41
PROVIDERS: PCP Family Medicine; Referring Provider Nurse Practitioner Acute Care; Visit Provider Nurse Practitioner Acute Care
DX: R93.89 Abnormal findings on diagnostic imaging of other specified body structures (principal)
CPT/HCPCS: 71250